=== PATIENT | female | born 1985 ===

== ENCOUNTER 2018-05-20 21:43 | Emergency (ER) | payer SELFPAY ==
[2018-05-20] MEDS ORDERED: Amoxicillin-Clav 875-125 mg Tab PO STA (22:10)
[2018-05-20 22:11] VITALS: BP 98/61; PULSE 71; RESP 18; TEMP 98.5; O2SAT 100
--- NOTE | 2018-05-20 22:16 | ED PDOC ---
Arrival/HPI - General Historian: Patient - History of Present Illness Narrative History of Present Illness (Text): 05/20/18 22:11 33yo female in ED with complaint of right ear pain x 2days. The by the bedside states patient had ear infection in same ear few months ago that resolved with antibiotics. Took Tylenol last night with some relieve. Denies fever, trauma ,.drainage, hearing loss, any other complaint. <Trupti Larkin A - Last Filed: 05/20/18 22:11> <Ace Minaya - Last Filed: 05/20/18 23:47> - General Chief Complaint: ENT Problem Past Medical History - Provider Review Nursing Documentation Reviewed: Yes - Infectious Disease Hx of Infectious Diseases: None - Psychiatric Hx Substance Use: No - Surgical History Hx Section: Yes (x2) Hx Cholecystectomy: Yes Hx Tonsillectomy: Yes Other/Comment: throat surgery - Anesthesia Hx Anesthesia: Yes Hx Anesthesia Reactions: No Hx Malignant Hyperthermia: No <Trupti Larkin A - Last Filed: 05/20/18 22:11> Family/Social History - Physician Review Nursing Documentation Reviewed: Yes Family/Social History: Unknown Family HX Smoking Status: Never Smoked Hx Alcohol Use: Yes Hx Substance Use: No <Trupti Larkin A - Last Filed: 05/20/18 22:11> Allergies/Home Meds <Trupti Larkin A - Last Filed: 05/20/18 22:11> <Ace Minaya - Last Filed: 05/20/18 23:47> Allergies/Adverse Reactions: Allergies No Known Allergies Allergy (Verified 05/20/18 22:06) Review of Systems - Physician Review All systems were reviewed & negative as marked: Yes - Review of Systems Constitutional: Normal Eyes: Normal ENT: Other (Right ear pain) Respiratory: Normal Cardiovascular: Normal Gastrointestinal: Normal Genitourinary Female: Normal Musculoskeletal: Normal Skin: Normal Neurological: Normal Endocrine: Normal Hemo/Lymphatic: Normal Psychiatric: Normal <Trupti Larkin A - Last Filed: 05/20/18 22:11> Physical Exam Vital Signs Reviewed: Yes Vital Signs Temp Pulse Resp BP Pulse Ox 05/20/18 22:05 98.5 F 71 18 98/61 L 100 Temperature: Afebrile Blood Pressure: Normal Pulse: Regular Respiratory Rate: Normal Appearance: Positive for: Well-Appearing, Non-Toxic, Comfortable Pain Distress: None Mental Status: Positive for: Alert and Oriented X 3 - Systems Exam Head: Present: Atraumatic, Normocephalic Pupils: Present: PERRL Extroacular Muscles: Present: EOMI Conjunctiva: Present: Normal Ears: Present: Erythema (Right TM), Other (Tenderness on palpation of right tragus and pain with manipulation of right pinna) Mouth: Present: Moist Mucous Membranes Neck: Present: Normal Range of Motion Respiratory/Chest: Present: Clear to Auscultation, Good Air Exchange. No: Respiratory Distress, Accessory Muscle Use Cardiovascular: Present: Regular Rate and Rhythm, Normal S1, S2. No: Murmurs Abdomen: No: Tenderness, Distention, Peritoneal Signs Back: Present: Normal Inspection Upper Extremity: Present: Normal Inspection. No: Cyanosis, Edema Lower Extremity: Present: Normal Inspection. No: Edema Neurological: Present: GCS=15, CN II-XII Intact, Speech Normal Skin: Present: Warm, Dry, Normal Color. No: Rashes Psychiatric: Present: Alert, Oriented x 3, Normal Insight, Normal Concentration <Diru,Happiness A - Last Filed: 05/20/18 22:11> Vital Signs Temp Pulse Resp BP Pulse Ox 05/20/18 22:05 98.5 F 71 18 98/61 L 100 <Ace Minaya - Last Filed: 05/20/18 23:47> Medical Decision Making - Medication Orders Current Medication Orders: Discontinued Medications Amoxicillin/Clavulanate Potassium (Augmentin 875 Mg-125 Mg Tab) 1 tab PO STAT STA; Protocol Stop: 05/20/18 22:11 Last Admin: 05/20/18 22:34 Dose: 1 tab Tramadol HCl (Ultram) 50 mg PO STAT STA Stop: 05/20/18 22:11 Last Admin: 05/20/18 22:34 Dose: 50 mg MAR Pain Assessment Document 05/20/18 22:34 WI (Rec: 05/20/18 22:34 WI [id number]) Pain Reassessment Is this a pain reassessment? No Sleep Is patient sleeping during reassessment? No Presence of Pain Presence of Pain Yes <Ace Minaya - Last Filed: 05/20/18 23:47> - PA / POLICE CLERK / Resident Statement MD/DO has reviewed & agrees with the documentation as recorded. <Ace Minaya - Last Filed: 05/20/18 23:47> Disposition/Present on Arrival - Present on Arrival Any Indicators Present on Arrival: No History of DVT/PE: No History of Uncontrolled Diabetes: No Urinary Catheter: No History of Decub. Ulcer: No History Surgical Site Infection Following: None - Disposition Have Diagnosis and Disposition been Completed?: Yes Disposition Time: 22:15 Patient Plan: Discharge <Trupti Larkin - Last Filed: 05/20/18 22:11> <Ace Minaya - Last Filed: 05/20/18 23:47> - Disposition Diagnosis: Otitis media, Otitis externa Disposition: HOME/ ROUTINE Condition: STABLE Discharge Instructions (ExitCare): Ear Infections (Otitis Media) Additional Instructions: Take medication as directed Follow up with ENT Return to Emergency department for any new or worsening symptoms Prescriptions: Amoxicillin/Clavulanate [Augmentin 875 MG-125 MG] 1 tab PO BID #14 tab Ciprofloxacin/Dexamethasone [Ciprodex Otic] 75 drop BID #1 bottle RX: Ibuprofen [Motrin Tab] 600 mg PO Q6 #15 tab Referrals: Willian Parra DO [Staff Provider] - Follow up with primary Forms: [employer] (Japanese)
== END 2018-05-20 22:35 | disposition home or self-care (01) ==
LOC: ED 21:43
DX: H66.91 Otitis media, unspecified, right ear (principal); H60.91 Unspecified otitis externa, right ear

== ENCOUNTER 2018-05-28 03:49 | Emergency (ER) | payer SELFPAY ==
[2018-05-28 04:01] VITALS: TEMP 97.8
--- NOTE | 2018-05-28 04:24 | ED PDOC ---
Arrival/HPI - General Chief Complaint: ENT Problem Time Seen by Provider: 05/28/18 04:10 Historian: Patient - History of Present Illness Narrative History of Present Illness (Text): 05/28/18 04:20 Evelyn Bruno is a 33 year old female who presents to the Emergency department complaining of right ear pain. 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 states patient was recently in the Emergency department on 05/20/2018 for similar complaints, given antibiotics and Motrin for pain with no significant relief. Patient denies any fever, chills, nausea, vomiting, back pain, neck pain, headache, dizziness, or any other complaints. Symptom Onset: Gradual Symptom Course: Unchanged Activities at Onset: Light Context: Home Past Medical History - Provider Review Nursing Documentation Reviewed: Yes - Infectious Disease Hx of Infectious Diseases: None - Psychiatric Hx Substance Use: No - Surgical History Hx Section: Yes (x2) Hx Cholecystectomy: Yes Hx Tonsillectomy: Yes Other/Comment: throat surgery - Anesthesia Hx Anesthesia: Yes Hx Anesthesia Reactions: No Hx Malignant Hyperthermia: No Family/Social History - Physician Review Nursing Documentation Reviewed: Yes Family/Social History: Unknown Family HX Smoking Status: Never Smoked Hx Alcohol Use: Yes Hx Substance Use: No Allergies/Home Meds Allergies/Adverse Reactions: Allergies No Known Allergies Allergy (Verified 05/20/18 22:06) Review of Systems - Physician Review All systems were reviewed & negative as marked: Yes - Review of Systems Constitutional: Normal Eyes: Normal ENT: Other (+right ear pain) Respiratory: Normal. absent: SOB, Cough Cardiovascular: Normal. absent: Chest Pain Gastrointestinal: Normal. absent: Abdominal Pain, Diarrhea, Nausea, Vomiting Genitourinary Female: Normal. absent: Dysuria, Frequency, Hematuria, Urine Output Changes Musculoskeletal: Normal. absent: Back Pain, Neck Pain Skin: Normal. absent: Rash Neurological: Headache. absent: Dizziness Endocrine: Normal Hemo/Lymphatic: Normal Psychiatric: Normal Physical Exam Vital Signs Reviewed: Yes Vital Signs Temp Pulse Resp BP Pulse Ox 05/28/18 03:58 97.8 F 61 20 126/68 99 Temperature: Afebrile Blood Pressure: Normal Pulse: Regular Respiratory Rate: Normal Appearance: Positive for: Well-Appearing, Non-Toxic, Comfortable Pain Distress: None Mental Status: Positive for: Alert and Oriented X 3 - Systems Exam Head: Present: Atraumatic, Normocephalic Pupils: Present: PERRL Extroacular Muscles: Present: EOMI Conjunctiva: Present: Normal Ears: Present: Erythema (Erythema to right ear canal), Other (Tenderness to palpation of right ear canal) Mouth: Present: Moist Mucous Membranes Pharnyx: Present: Normal. No: ERYTHEMA, EXUDATE, TONSILS ENLARGED, Peritonsilar Swelling, Uvular Deviation, Muffled/Hoarse Voice, Strider, Soft Palate/Uvular Edema Nose (External): Present: Atraumatic Nose (Internal): Present: Normal Inspection Neck: Present: Normal Range of Motion. No: Meningeal Signs, MIDLINE TENDERNESS, Paraspinal Tenderness Respiratory/Chest: Present: Clear to Auscultation, Good Air Exchange. No: Respiratory Distress, Accessory Muscle Use Cardiovascular: Present: Regular Rate and Rhythm, Normal S1, S2. No: Murmurs Abdomen: No: Tenderness, Distention, Peritoneal Signs Back: Present: Normal Inspection. No: CVA Tenderness, Midline Tenderness, Paraspinal Tenderness Upper Extremity: Present: Normal Inspection. No: Cyanosis, Edema Lower Extremity: Present: Normal Inspection. No: Edema Neurological: Present: GCS=15, CN II-XII Intact, Speech Normal, Motor Func Grossly Intact, Normal Sensory Function, Normal Cerebellar Funct Skin: Present: Warm, Dry, Normal Color. No: Rashes Psychiatric: Present: Alert, Oriented x 3, Normal Insight, Normal Concentration Medical Decision Making ED Course and Treatment: 05/28/18 04:20 Impression: 33 year old female complaining of right-sided ear pain, headache, and nasal congestion. Plan: -- CT Head w/o contrast -- Reassess and disposition Prior Visits: Notes and results from previous visits were reviewed. On 05/20/2018, pt was seen in the Emergency department for right ear pain. Pt was d/c home on Augmentin, Ciprodex, and Motrin. Progress Notes: 05/28/18 05:13 CT Head: Normal size of the ventricles and extra-axial spaces for the patient's age. Normal white matter tracts of the supratentorial brain. Normal basal ganglia and thalami. Normal brainstem. Normal cerebellum. There is no demonstrated extra-axial, intraparenchymal, or intraventricular hemorrhage. There are no findings of an acute ischemic infarction. Normal calvarium. There is no demonstrated fracture. Normal soft tissue structures. Normal visualized paranasal sinuses. IMPRESSION: Normal unenhanced CT scan of the brain. Electronically signed on May 28, 2018 5:09:53 AM EST by: Michael Santiago M.D., Certified by CHANDA CASTORENA, Neuroradiology 05/28/18 06:01 CT Head addendum: Unremarkable middle ear cavities and mastoid air cells. No CT evidence of otomastoiditis. Addendum electronically signed by Michael Santiago M.D., Certified by CHANDA CASTORENA, Neuroradiology on May 28, 2018 5:58:54 AM EST - RAD Interpretation Corner Trimmer Operator: Radiologist - Scribe Statement The provider has reviewed the documentation as recorded by the Scribe Katarzyna Padilla Provider Scribe Attestation: All medical record entries made by the Scribe were at my direction and personally dictated by me. I have reviewed the chart and agree that the record accurately reflects my personal performance of the history, physical exam, medical decision making, and the department course for this patient. I have also personally directed, reviewed, and agree with the discharge instructions and disposition. Disposition/Present on Arrival - Present on Arrival Any Indicators Present on Arrival: No History of DVT/PE: No History of Uncontrolled Diabetes: No Urinary Catheter: No History of Decub. Ulcer: No History Surgical Site Infection Following: None - Disposition Have Diagnosis and Disposition been Completed?: Yes Diagnosis: Otitis externa Disposition: HOME/ ROUTINE Disposition Time: 06:08 Patient Plan: Discharge Condition: GOOD Discharge Instructions (ExitCare): Outer Ear Infection (DC) Additional Instructions: Use medication as prescribed/avoid any water in the ear canal/follow up with the ear/nose/throat doctor this week Prescriptions: Neomycin/Polymyxin/Hydrocortis [Cortisporin Otic Susp] 4 drop AD QID #1 bottle Tramadol HCl [Ultram] 50 mg PO Q6 PRN #12 tab PRN Reason: Pain, Moderate (4-7) Referrals: John Lee, [Doctor Osteopathy] - Follow up with primary Forms: [employer] (Welsh)
[2018-05-28 06:29] VITALS: BP 120/64; PULSE 60; RESP 18; O2SAT 100
--- NOTE | 2018-05-28 08:12 | CT ---
Date of service: 05/28/2018 PROCEDURE: CT HEAD WITHOUT CONTRAST. HISTORY: headache/right ear pain COMPARISON: None available. TECHNIQUE: Axial computed tomography images were obtained through the head/brain without intravenous contrast. Radiation dose: Total exam DLP = 853.08 mGy-cm. This CT exam was performed using one or more of the following dose reduction techniques: Automated exposure control, adjustment of the mA and/or kV according to patient size, and/or use of iterative reconstruction technique. FINDINGS: HEMORRHAGE: No intracranial hemorrhage. BRAIN: Normal amezcua-white matter differentiation and density are appreciated throughout the cerebrum and cerebellum with the brainstem appearing unremarkable as well. There is no mass effect. There is no suspicious extra-axial fluid collection and the midline brain anatomy appears diffusely unremarkable. VENTRICLES: Unremarkable. No hydrocephalus. CALVARIUM: Unremarkable. PARANASAL SINUSES: Unremarkable as visualized. No significant inflammatory changes. MASTOID AIR CELLS: Unremarkable as visualized. No inflammatory changes. OTHER FINDINGS: None. IMPRESSION: Unremarkable unenhanced CT of the Head. Concordant preliminary report from [facility], 05/28/2018
== END 2018-05-28 06:29 | disposition home or self-care (01) ==
LOC: ED 03:49
DX: H60.91 Unspecified otitis externa, right ear (principal)

== ENCOUNTER 2018-08-05 19:36 | Emergency (ER) | payer OTHER ==
[2018-08-05 20:17] VITALS: BMI 20.9
--- NOTE | 2018-08-05 21:19 | ED PDOC ---
Arrival/HPI - General Chief Complaint: Abdominal Pain Time Seen by Provider: 08/05/18 20:17 Historian: Patient - History of Present Illness Narrative History of Present Illness (Text): 08/05/18 21:19 33 year old female, with no significant past medical history, presents to the emergency department with abdominal pain, for 1 week. Patient states she was recently prescribed antibiotics from her dentist for a tooth infection, and steroids from her PMD fro chronic ear pain. Patient informs she started taking them on Friday (07/31/18). Patient states she then began having epigastric pain after taking the medications. Patient informs she did not take them the next day, and had no pain. Patient informs the day after that, she took them, and pain began again. Patient states she believes pain is attributed to the medication. Patient denies any nausea, vomiting, diarrhea, fevers, chills, headache, dizziness, chest pain, shortness of breath, cough, or any other complaint. Time/Duration: 1 week Symptom Onset: Gradual Symptom Course: Unchanged, Intermittent Activities at Onset: Light Context: Home Past Medical History - Provider Review Nursing Documentation Reviewed: Yes - Infectious Disease Hx of Infectious Diseases: None - Psychiatric Hx Substance Use: No - Surgical History Hx Section: Yes (x2) Hx Cholecystectomy: Yes Hx Tonsillectomy: Yes Other/Comment: throat surgery - Anesthesia Hx Anesthesia: Yes Hx Anesthesia Reactions: No Hx Malignant Hyperthermia: No Family/Social History - Physician Review Nursing Documentation Reviewed: Yes Family/Social History: No Known Family HX Smoking Status: Never Smoked Hx Alcohol Use: Yes Hx Substance Use: No Allergies/Home Meds Allergies/Adverse Reactions: Allergies No Known Allergies Allergy (Verified 05/20/18 22:06) Home Medications: Home Meds Medication Instructions Recorded Confirmed RX: Amoxicillin [Amoxil 500 mg Cap] 500 mg PO TID 08/05/18 08/05/18 RX: Prednisone [Deltasone] 20 mg PO DAILY 08/05/18 08/05/18 Review of Systems - Physician Review All systems were reviewed & negative as marked: Yes - Review of Systems Constitutional: absent: Fevers, Night Sweats Respiratory: absent: SOB, Cough Cardiovascular: absent: Chest Pain Gastrointestinal: Abdominal Pain. absent: Diarrhea, Nausea, Vomiting Neurological: absent: Headache, Dizziness Physical Exam Vital Signs Reviewed: Yes Vital Signs Temp Pulse Resp BP Pulse Ox 08/05/18 20:05 98.3 F 81 18 98/67 L 100 Temperature: Afebrile Blood Pressure: Hypotensive Pulse: Regular Respiratory Rate: Normal Appearance: Positive for: Well-Appearing, Non-Toxic, Comfortable Pain Distress: None Mental Status: Positive for: Alert and Oriented X 3 - Systems Exam Head: Present: Atraumatic, Normocephalic Pupils: Present: PERRL Extroacular Muscles: Present: EOMI Conjunctiva: Present: Normal Mouth: Present: Moist Mucous Membranes Neck: Present: Normal Range of Motion Respiratory/Chest: Present: Clear to Auscultation, Good Air Exchange. No: Respiratory Distress, Accessory Muscle Use Cardiovascular: Present: Regular Rate and Rhythm, Normal S1, S2. No: Murmurs Abdomen: Present: Tenderness (Minimal epigastric tenderness). No: Distention, Peritoneal Signs Back: Present: Normal Inspection Upper Extremity: Present: Normal Inspection. No: Cyanosis, Edema Lower Extremity: Present: Normal Inspection. No: Edema Neurological: Present: GCS=15, CN II-XII Intact, Speech Normal Skin: Present: Warm, Dry, Normal Color. No: Rashes Psychiatric: Present: Alert, Oriented x 3, Normal Insight, Normal Concentration Medical Decision Making ED Course and Treatment: 08/05/18 21:25 Impression: 33 year old female presents with epigastric abdominal pain. Plan: -- CBC -- Pepcid -- Zofran -- Urinalysis -- Reassess and disposition Prior Visits: Notes and results from previous visits were reviewed. Progress Notes: On re-eval, patient laying comfortably in stretcher, on phone. Lab results discussed. Advised contacting PMD/dentist regarding continuing her prescribed medications. - Medication Orders Current Medication Orders: Discontinued Medications Famotidine (Pepcid) 20 mg IVP STAT STA Stop: 08/05/18 20:58 Ondansetron HCl (Zofran Inj) 4 mg IVP STAT STA Stop: 08/05/18 20:58 - Scribe Statement The provider has reviewed the documentation as recorded by the Rigobertoibmiguel Wilson Provider Scribe Attestation: All medical record entries made by the Scribe were at my direction and personally dictated by me. I have reviewed the chart and agree that the record accurately reflects my personal performance of the history, physical exam, medical decision making, and the department course for this patient. I have also personally directed, reviewed, and agree with the discharge instructions and disposition. Disposition/Present on Arrival - Present on Arrival Any Indicators Present on Arrival: No History of DVT/PE: No History of Uncontrolled Diabetes: No Urinary Catheter: No History of Decub. Ulcer: No History Surgical Site Infection Following: None - Disposition Have Diagnosis and Disposition been Completed?: Yes Diagnosis: Epigastric pain Disposition: HOME/ ROUTINE Disposition Time: 22:45 Condition: STABLE Discharge Instructions (ExitCare): Acute Abdomen (Belly Pain), Adult (DC) Additional Instructions: KATHRYN GUZMAN, thank you for letting us take care of you today. Your provider was Lesley Carter MD and you were treated for STOMACH PAIN. The emergency medical care you received today was directed at your acute symptoms. If you were prescribed any medication, please fill it and take as directed. It may take several days for your symptoms to resolve. Return to the Emergency Department if your symptoms worsen, do not improve, or if you have any other problems. Please contact your doctor or call one of the physicians/clinics you have been referred to that are listed on the Patient Visit Information form that is included in your discharge packet. Bring any paperwork you were given at discharge with you along with any medications you are taking to your follow up visit. Our treatment cannot replace ongoing medical care by a primary care provider outside of the emergency department. Thank you for allowing the [facility] team to be part of your care today. If you had an X-Ray or CT scan: A Radiologist will review the ED reading if any change in treatment is needed we will contact you. If you had a blood, urine, or wound culture: It will take several days for the results, if any change in treatment is needed we will contact you. If you had an STI test: It will take 48 hours for the results. Please call after 1 week if you have not heard back. Referrals: PCP,NO [Primary Care Provider] - Follow up with primary Forms: [email or web address] (Serbian)
[2018-08-05 21:23] LABS: BASO # 0.01 K/mm3 (0.0-2.0); BASO % 0.1 % (0.0-3.0); EOS # 0.1 (0.0-0.7); EOS % 0.6 % (1.5-5.0); GRAN # 4.11 (1.4-6.5); GRAN % 46.6 % (50.0-68.0); HEMOGLOBIN 8.7 g/dL (12.0-16.0); LYMPH % 45.1 % (22.0-35.0); MEAN CELL VOLUME 72.4 fl (80.0-105.0); MEAN CORPUSCULAR HEMOGLOBIN 22.2 pg (25.0-35.0); MEAN CORPUSCULAR HGB CONC 30.6 g/dl (31.0-37.0); MEAN PLATELET VOLUME 9.4 fl (7.0-11.0); MONO # 0.7 (0.1-0.6); MONO % 7.6 % (1.0-6.0); RBC 3.92 10^6/uL (3.5-6.1); RED CELL DISTRIBUTION WIDTH 17.9 % (11.5-14.5); WHITE BLOOD COUNT 8.8 10^3/uL (4.5-11.0)
[2018-08-05 21:24] LABS: ALB/GLOB RATIO 1.2 (1.1-1.8); ALBUMIN 3.9 g/dL (3.0-4.8); ALT/SGPT 25 U/L (7-56); AST/SGOT 16 U/L (14-36); BLOOD UREA NITROGEN 15 mg/dL (7-21); CALCIUM 8.8 mg/dL (8.4-10.5); GFR NON-AFRICAN AMERICAN > 60; LIPASE 31 U/L (23-300)
[2018-08-05 23:00] VITALS: BP 110/76; PULSE 88; RESP 17; TEMP 98.4; O2SAT 99
== END 2018-08-05 22:59 | disposition home or self-care (01) ==
LOC: ED 19:36
DX: R10.13 Epigastric pain (principal); Z90.49 Acquired absence of other specified parts of digestive tract
CPT/HCPCS: 80053; 81025; 83690; 85025; 96374; 96375; 99283; J2405

== ENCOUNTER 2018-09-29 23:50 | Emergency (ER) | payer OTHER ==
[2018-09-29 23:54] VITALS: BMI 22.3
[2018-09-29 23:55] VITALS: TEMP 97.5
[2018-09-30 00:38] LABS: BASO # 0.04 K/mm3 (0.0-2.0); BASO % 0.6 % (0.0-3.0); EOS # 0.1 (0.0-0.7); HEMOGLOBIN 8.8 g/dL (12.0-16.0); LYMPH # 2.4 (1.2-3.4); LYMPH % 33.1 % (22.0-35.0); MEAN CELL VOLUME 69.5 fl (80.0-105.0); MEAN CORPUSCULAR HEMOGLOBIN 21.6 pg (25.0-35.0); MEAN CORPUSCULAR HGB CONC 31.1 g/dl (31.0-37.0); MEAN PLATELET VOLUME 9.9 fl (7.0-11.0); MONO # 0.8 (0.1-0.6); MONO % 10.7 % (1.0-6.0); RBC 4.07 10^6/uL (3.5-6.1); RED CELL DISTRIBUTION WIDTH 18.5 % (11.5-14.5); WHITE BLOOD COUNT 7.1 10^3/uL (4.5-11.0)
[2018-09-30 00:39] LABS: URINE APPEARANCE SL CLOUDY (CLEAR); URINE BILIRUBIN NEGATIVE (NEGATIVE); URINE BLOOD LARGE (NEGATIVE); URINE COLOR YELLOW (YELLOW); URINE GLUCOSE (UA) NEGATIVE (NEGATIVE); URINE LEUKOCYTE ESTERASE SMALL Leu/uL (NEGATIVE); URINE PROTEIN TRACE mg/dL (<30 mg/dL); URINE UROBILINOGEN 0.2 E.U./dL (<1 E.U./dL)
[2018-09-30 00:46] LABS: ALB/GLOB RATIO 1.3 (1.1-1.8); ALBUMIN 4.2 g/dL (3.0-4.8); ALT/SGPT 10 U/L (7-56); AST/SGOT 35 U/L (14-36); BLOOD UREA NITROGEN 19 mg/dL (7-21); CALCIUM 9.7 mg/dL (8.4-10.5); GFR NON-AFRICAN AMERICAN > 60
[2018-09-30 00:58] LABS: URINE BACTERIA SMALL /hpf
--- NOTE | 2018-09-30 02:02 | ED PDOC ---
Arrival/HPI - General Chief Complaint: Abdominal Pain Time Seen by Provider: 09/29/18 23:59 Historian: Patient, Partner - History of Present Illness Narrative History of Present Illness (Text): 09/30/18 01:58 33-year-old female presents today with vaginal spotting and lower abdominal cramping. Patient states 10 minutes prior to arrival she went to the bathroom and noticed a little bit of vaginal bleeding. Patient states she now has some lower abdominal pain. No nausea or vomiting. No dizziness or weakness. No chest pain or shortness of breath. Patient is complaining of some dysuria. She denies back pain. Patient's states that they went to the primary care physician and had a blood test that confirmed that she was and they told her that she was anemic and she was started on iron supplement ation. Past Medical History - Provider Review Nursing Documentation Reviewed: Yes - Travel History Have you recently traveled outside [place] w/in the past 3 mons?: No - Infectious Disease Hx of Infectious Diseases: None - Cardiac Hx Cardiac Disorders: No - Pulmonary Hx Respiratory Disorders: No - Neurological Hx Neurological Disorder: No - HEENT Hx HEENT Disorder: No - Renal Hx Renal Disorder: No - Endocrine/Metabolic Hx Endocrine Disorders: No - Hematological/Oncological Hx Blood Disorders: No - Integumentary Hx Dermatological Disorder: No - Musculoskeletal/Rheumatological Hx Musculoskeletal Disorders: No - Gastrointestinal Hx Gastrointestinal Disorders: No - Genitourinary/Gynecological Hx Genitourinary Disorders: No - Psychiatric Hx Psychophysiologic Disorder: No Hx Substance Use: No - Surgical History Hx Section: Yes (x2) Hx Cholecystectomy: Yes Hx Tonsillectomy: Yes Other/Comment: throat surgery - Anesthesia Hx Anesthesia: Yes Hx Anesthesia Reactions: No Hx Malignant Hyperthermia: No Family/Social History - Physician Review Nursing Documentation Reviewed: Yes Family/Social History: Unknown Family HX Smoking Status: Never Smoked Hx Alcohol Use: Yes Hx Substance Use: No Allergies/Home Meds Allergies/Adverse Reactions: Allergies No Known Allergies Allergy (Verified 09/29/18 23:54) Home Medications: Home Meds Medication Instructions Recorded Confirmed Amoxicillin [Amoxil 500 mg Cap] 500 mg PO TID 08/05/18 08/05/18 Prednisone [Deltasone] 20 mg PO DAILY 08/05/18 08/05/18 Review of Systems - Review of Systems Constitutional: absent: Fatigue, Fevers Respiratory: absent: SOB, Cough Cardiovascular: absent: Chest Pain, Palpitations Gastrointestinal: Abdominal Pain. absent: Constipation, Diarrhea, Nausea, Vomiting Genitourinary Female: Dysuria, Vaginal Bleeding. absent: Frequency Musculoskeletal: absent: Arthralgias, Back Pain, Neck Pain Skin: absent: Rash, Pruritis Neurological: absent: Headache, Dizziness Psychiatric: absent: Anxiety, Depression Physical Exam Vital Signs Reviewed: Yes Vital Signs Temp Pulse Resp BP Pulse Ox 09/29/18 23:54 97.5 F L 71 19 111/75 99 Temperature: Afebrile Blood Pressure: Normal Pulse: Regular Respiratory Rate: Normal Appearance: Positive for: Well-Appearing, Non-Toxic, Comfortable Pain Distress: None Mental Status: Positive for: Alert and Oriented X 3 - Systems Exam Head: Present: Atraumatic Mouth: Present: Moist Mucous Membranes Respiratory/Chest: Present: Clear to Auscultation Cardiovascular: Present: Regular Rate and Rhythm Abdomen: Present: Tenderness (minimal suprapubic tenderness. no RLQ tenderness. ), Normal Bowel Sounds. No: Distention, Rebound, Guarding Genitourinary/Pelvic Exam: Present: Normal External Genitalia, Cervical os Closed, Other (small amount of brownish discharge noted; no active bleeding. chaparoned by Morelia PATRICK RN). No: Vaginal Discharge, Vaginal Bleeding, Vaginal Lesions, Adenexal Tenderness, Adenexal Mass, Cervical Motion Tendernes Back: Present: Normal Inspection Upper Extremity: Present: Normal ROM Lower Extremity: Present: Normal ROM Neurological: Present: GCS=15, Speech Normal Skin: Present: Warm, Dry, Normal Color. No: Rashes Psychiatric: Present: Alert, Oriented x 3 Medical Decision Making ED Course and Treatment: 09/30/18 02:00 Patient is nontoxic well appearing in no distress. vitals stable CBC: hgb; 8.8 which is increased from 2018 CMP: wnl Beta hC TYPE AND SCREEN:A+ Urinalysis: + blood, + leukocytes Ultrasound: Findings: Single intrauterine gestational sac measuring 1.7 cm. This corresponds to an estimated gestation age of 6 weeks. The yolk sac measures 2.1 mm. No evidence of pole. No free fluid is noted in the pelvic cul-de-sac. Nonvisualization of the left ovary. Right ovarian corpus luteum cyst measuring 1.8 cm. Impression: Single, live intrauterine gestation. No abnormality seen. Electronically signed on Sep 30, 2018 2:06:06 AM EDT by: Michael Santiago M.D., Certified by ABR, MSK, Neuroradiology Discussed all the results the patient and her . advised f/u with the campus recruiting intern within the next 2 days. advised immediate return if symptoms worsen,persist or if new symptoms develop. Advised continuing vitamins as prescribed. macrobid given Po Patient verbalizes understanding of discharge instructions and need for immediate followup. All aspects of this case were discussed the attending of record. Impression: threatened , anemia, UTI Tylenol every 4 hours as needed for pain Increase fluids macrobid; 1 tablet twice daily x 10 days. Followup with the logistics engineer within the next 2 days Return immediately if symptoms worsen persist or if new symptoms develop: High fevers, heavy bleeding, severe abdominal pain, vomiting, diarrhea, dizziness or weakness or any other concerning symptoms develop. continue vitamins - Lab Interpretations Lab Results: Total Bilirubin 0.3 mg/dL (0.2-1.3) 09/30/18 00:21 AST 35 U/L (14-36) 09/30/18 00:21 ALT 10 U/L (7-56) 09/30/18 00:21 Alkaline Phosphatase 60 U/L (38-126) 09/30/18 00: Total Protein 7.6 g/dL (5.8-8.3) 09/30/18 00: Albumin 4.2 g/dL (3.0-4.8) 09/30/18: Globulin 3.4 gm/dL 09/30/18 00: Albumin/Globulin Ratio 1.3 (1.1-1.8) 09/30/18 00: Urine Color Yellow (YELLOW) 09/30/18 00: Urine Appearance Sl cloudy (CLEAR) 09/30/18: Urine pH 7.0 (4.7-8.0) 09/30/18 00: Ur Specific [place] 1.020 (1.005-1.035) 09/30/18: Urine Protein Trace mg/dL (<30 mg/dL) H 09/30/18 00: Urine Glucose (UA) Negative mg/dL (NEGATIVE) 09/30/18 00:21 Urine Ketones Negative mg/dL (NEGATIVE) 09/30/18 00:21 Urine Blood Large (NEGATIVE) H 09/30/18 00:21 Urine Nitrate Negative (NEGATIVE) 09/30/18 00:21 Urine Bilirubin Negative (NEGATIVE) 09/30/18 00:21 Urine Urobilinogen 0.2 E.U./dL (<1 E.U./dL) 09/30/18 00:21 Ur Leukocyte Esterase Small Alexandra/uL (NEGATIVE) H 09/30/18 00:21 Urine RBC 2 - 5 /hpf (0-2) H 09/30/18 00:21 Urine WBC 1 - 3 /hpf (0-6) 09/30/18 00:21 Ur Epithelial Cells 6 - 8 /hpf (0-5) H 09/30/18 00:21 Urine Bacteria Small /hpf (NONE) 09/30/18 00: Beta HCG, Quant 99478.00 mIU/mL (0-6.15) H 09/30/18 00:21 - RAD Interpretation Radiology Orders: 09/30/18 00:00 OB TRANSVAGINAL [US] Stat Disposition/Present on Arrival - Present on Arrival Any Indicators Present on Arrival: No History of DVT/PE: No History of Uncontrolled Diabetes: No Urinary Catheter: No History of Decub. Ulcer: No History Surgical Site Infection Following: None - Disposition Have Diagnosis and Disposition been Completed?: Yes Diagnosis: Threatened , Urinary tract infection, Anemia Disposition: HOME/ ROUTINE Disposition Time: 02:11 Patient Plan: Discharge Patient Problems: Current Active Problems Problem Status Onset Anemia Acute Threatened Acute Urinary tract infection Acute Condition: GOOD Discharge Instructions (ExitCare): Threatened Miscarriage (DC), Urinary Tract Infection, Adult (DC) Additional Instructions: Tylenol every 4 hours as needed for pain Increase fluids macrobid; 1 tablet twice daily x 10 days. Followup with the logistics engineer within the next 2 days Return immediately if symptoms worsen persist or if new symptoms develop: High fevers, heavy bleeding, severe abdominal pain, vomiting, diarrhea, dizziness or weakness or any other concerning symptoms develop. continue vitamins Prescriptions: Nitrofurantoin Macrocrystals [Macrobid] 100 mg PO BID #20 cap Referrals: Jatin Soto MD [Primary Care Provider] - Follow up with primary Steven De La Rosa [Medical Doctor] - Follow up with primary [facility] [Outside] - [facility] [[facility]] - Follow up with primary Forms: [employer] (E[place]ian), WORK NOTE
[2018-09-30 02:11] VITALS: BP 108/67; RESP 18; O2SAT 100
[2018-09-30 02:12] VITALS: PULSE 77
--- NOTE | 2018-09-30 13:01 | US ---
Date of service: 09/30/2018 PROCEDURE: OB Pelvic Ultrasound HISTORY: pain, bleeding LMP: COMPARISON: None available. FINDINGS: UTERUS: Gestational sac: Corresponds to a gestational age of 6 weeks. A yolk sac is seen. There is no evidence of a pole Uterus measures 10.2 x 6.0 x 6.3 cm. Normal in size and appearance. CERVIX: Measures cm. Long and closed. No cervical abnormality seen. RIGHT OVARY: Measures 3.3 by 2.3 x 3.0 cm. No mass lesion. Normal flow. LEFT OVARY: Not visualized FREE FLUID: None. OTHER FINDINGS: The report concurs with the preliminary [facility] report IMPRESSION: There is a gestational sac corresponding to a gestational age of 6 weeks. A yolk sac is seen. There is no pole visualized.
== END 2018-09-30 02:31 | disposition home or self-care (01) ==
LOC: ED 23:50
DX: O20.0 Threatened abortion (principal); O23.41 Unspecified infection of urinary tract in pregnancy, first trimester; O99.011 Anemia complicating pregnancy, first trimester; Z3A.01 Less than 8 weeks gestation of pregnancy